=== PATIENT | female | born 1950 | race Caucasian/White ===

== ENCOUNTER 2019-10-27 06:31 | Observation (INO) ==
[~2019-10-27 06:31] MED LIST: Famotidine IV 10 MG/ML 2 ml VIAL (20 mg) IV ONE; Lactated Ringers 1000 ml BAG 1,000 ML IV SCH
[2019-10-27] MEDS ORDERED: Famotidine IV 10 MG/ML 2 ml VIAL (20 mg) ONE (07:06)
[2019-10-27] MEDS ORDERED: ceFAZolin 2 GM PREMIX in ORs 2 GM/50 ML BAG ONE (07:06)
[2019-10-27] MEDS ORDERED: ROPIVACAINE 5 MG/ML 30 ML BTL (0.5%) ONE ×2 (07:12→08:01)
[2019-10-27] MEDS ORDERED: fentaNYL 100 mcg/2 ml 50 MCG/ML VIAL ONE (08:17)
[2019-10-27] MEDS ORDERED: Midazolam 5 mg/5 ml VIAL 1 mg/ml 5 ml VIAL (5 mg) ONE (08:17)
[2019-10-27] MEDS ORDERED: Midazolam 2 mg/2 ml VIAL 1 mg/ml 2 ml VIAL (2 mg) ONE (09:15)
[2019-10-27] MEDS ORDERED: Dexmedetomidine 200 mcg/2 ml 2 ml VIAL (200 mcg) ONE (09:20)
[2019-10-27] MEDS ORDERED: Dexamethasone IV 4 MG/ML VIAL 1 ml VIAL ONE (09:20)
[2019-10-27] MEDS ORDERED: Propofol 10 MG/ML 20 ML BTL ONE ×2 (09:20→09:45)
[2019-10-27] MEDS ORDERED: DiMENhydriNATE IV 50 mg/ml 1 ml VIAL IV PUSH PRN (10:20)
[2019-10-27] MEDS ORDERED: Ondansetron 4 mg VIAL 2 MG/ML 2 ml VIAL IV PRN ×2 (10:20→11:31)
[2019-10-27] MEDS ORDERED: fentaNYL 100 mcg/2 ml 50 MCG/ML VIAL IV PRN (10:20)
[2019-10-27] MEDS ORDERED: Naloxone 0.4 mg VIAL 0.4 mg/ml 1 ml VIAL IV PRN (10:20)
[2019-10-27] MEDS ORDERED: Acetaminophen IV 1 GM/100ML 100 ML ONE (10:48)
[2019-10-27] MEDS ORDERED: Magnesium Hydroxide LIQ 30 ML UDC PO PRN (11:31)
[2019-10-27] MEDS ORDERED: Ondansetron ODT 4 mg TAB 4 MG TAB PO PRN (11:31)
[2019-10-27] MEDS ORDERED: Morphine 2 MG/ML SYRINGE IV PRN (11:31)
[2019-10-27] MEDS ORDERED: diPHENhydraMINE IV 50 MG/ML 1 ml VIAL (BENADRYL) IV PRN (11:31)
[2019-10-27] MEDS ORDERED: diPHENhydraMINE 25 mg TAB PO PRN (11:31)
[2019-10-27] MEDS ORDERED: Lactulose 30 ml UDC PO PRN (11:31)
[2019-10-27] MEDS: Lactated Ringers 1000 ml BAG 1,000 ML IV SCH ×2 (12:32→22:20)
[2019-10-27] MEDS: ceFAZolin 1 GM ADVAN(*) 1 GM in NS 0.9% 50 ML 50 ML IVPB SCH (17:00)
[2019-10-27] MEDS: Magnesium Hydroxide LIQ 30 ML UDC PO SCH (20:33)
[2019-10-27] MEDS: oxyCODONE/Acetamin 5/325 mg TAB PO PRN (22:17)
[2019-10-28] MEDS: ceFAZolin 1 GM ADVAN(*) 1 GM in NS 0.9% 50 ML 50 ML IVPB SCH ×2 (00:16→09:07)
[2019-10-28] MEDS: oxyCODONE/Acetamin 5/325 mg TAB PO PRN ×3 (05:07→14:12)
[2019-10-28 05:31] LABS: Hematocrit 35 % (35-47); Mean Platelet Volume 8.6 fL (7.4-10.4); Platelet Count 249 10^3/uL (150-450)
[2019-10-28 05:50] LABS: BUN/Creatinine Ratio 17.2 (8-20); Calcium 9.1 mg/dL (8.6-10.3); EGFR African American 66.9 (>60); EGFR Non-African American 55.3 (>60); Potassium 4.3 mmol/L (3.5-5.0)
[2019-10-28] MEDS ORDERED: Vitamin THERAPEUTIC TAB PO SCH (09:00)
[2019-10-28] MEDS ORDERED: HYDROCHLOROTHIAZIDE 12.5 MG PO SCH (09:00)
[2019-10-28] MEDS: Magnesium Hydroxide LIQ 30 ML UDC PO SCH (09:09)
[2019-10-28] MEDS ORDERED: NS 0.9% 250 ml 250 ML IV ONE (09:47)
[2019-10-28 14:46] VITALS: BP 132/86
== END 2019-10-28 14:57 | disposition home or self-care (01) ==
LOC: OR 06:31 → SSU 06:31
PROVIDERS: ADMIT Orthopaedic Surgery Adult Reconstructive Orthopaedic Surgery; ATTEND Orthopaedic Surgery Adult Reconstructive Orthopaedic Surgery

== ENCOUNTER 2020-02-24 06:19 | Observation (INO) ==
[~2020-02-24 06:19] MED LIST changes: +Buffered Lidocaine 1% SYRIN 1 ml INTRADERM ONE; +Dexamethasone IV 4 MG/ML VIAL 1 ml VIAL IV SLOW PU ONE; +Dexamethasone IV 4 MG/ML VIAL 1 ml VIAL ONE; -Famotidine IV 10 MG/ML 2 ml VIAL (20 mg) IV ONE; +ceFAZolin 2 GM PREMIX 2 GM/50 ML BAG ONE
[2020-02-24] MEDS ORDERED: ROPIVACAINE 5 MG/ML 30 ML BTL (0.5%) ONE ×2 (07:14→07:41)
[2020-02-24] MEDS ORDERED: Midazolam 2 mg/2 ml VIAL 1 mg/ml 2 ml VIAL (2 mg) ONE (07:23)
[2020-02-24] MEDS ORDERED: Rocuronium 50 mg VIAL 10 mg/ml 5 ml VIAL (50 mg) ONE (07:23)
[2020-02-24] MEDS ORDERED: fentaNYL 100 mcg/2 ml 50 MCG/ML VIAL ONE (07:23)
[2020-02-24] MEDS ORDERED: Propofol 10 MG/ML 20 ML BTL ONE (07:23)
[2020-02-24] MEDS ORDERED: Lidocaine 2% PF 5 ML VIAL ONE (07:41)
[2020-02-24] MEDS ORDERED: HYDROmorphone 1 MG/1 ML SYRINGE IV PRN (08:39)
[2020-02-24] MEDS ORDERED: fentaNYL 100 mcg/2 ml 50 MCG/ML VIAL IV PRN (08:39)
[2020-02-24] MEDS ORDERED: Naloxone 0.4 mg VIAL 0.4 mg/ml 1 ml VIAL IV PRN (08:39)
[2020-02-24] MEDS ORDERED: Ondansetron 4 mg VIAL 2 MG/ML 2 ml VIAL IV PRN ×2 (08:39→10:47)
[2020-02-24] MEDS ORDERED: Ondansetron ODT 4 mg TAB 4 MG TAB PO PRN (10:47)
[2020-02-24] MEDS ORDERED: Morphine 2 MG/ML SYRINGE IV PRN (10:47)
[2020-02-24] MEDS ORDERED: diPHENhydraMINE 25 mg TAB PO PRN (10:47)
[2020-02-24] MEDS ORDERED: oxyCODONE/Acetamin 5/325 mg TAB PO PRN ×2 (10:47)
[2020-02-24] MEDS ORDERED: Magnesium Hydroxide LIQ 30 ML UDC PO PRN (10:47)
[2020-02-24] MEDS ORDERED: diPHENhydraMINE IV 50 MG/ML 1 ml VIAL (BENADRYL) IV PRN (10:47)
[2020-02-24] MEDS ORDERED: Lactulose 30 ml UDC PO PRN (10:47)
[2020-02-24] MEDS ORDERED: oxyCODONE/Acetamin 5/325 mg TAB ONE (11:43)
[2020-02-24] MEDS: Lactated Ringers 1000 ml BAG 1,000 ML IV SCH ×2 (13:01→23:34)
[2020-02-24] MEDS: ceFAZolin 1 GM ADVAN 1 GM in NS 0.9% 50 ML 50 ML IVPB SCH ×2 (16:20→23:34)
[2020-02-24] MEDS: Magnesium Hydroxide LIQ 30 ML UDC PO SCH (21:08)
[2020-02-25 06:16] LABS: Hematocrit 34 % (35-47); Hemoglobin 11.7 g/dL (12.0-16.0); Mean Platelet Volume 8.7 fL (7.4-10.4); Platelet Count 327 10^3/uL (150-450)
[2020-02-25 06:36] LABS: BUN/Creatinine Ratio 19.5 (8-20); Calcium 8.9 mg/dL (8.6-10.3); EGFR African American 89.4 (>60); EGFR Non-African American 73.9 (>60); Potassium 3.5 mmol/L (3.5-5.0)
[2020-02-25] MEDS: ceFAZolin 1 GM ADVAN 1 GM in NS 0.9% 50 ML 50 ML IVPB SCH (08:58)
[2020-02-25] MEDS ORDERED: Vitamin THERAPEUTIC TAB PO SCH (09:00)
[2020-02-25] MEDS: Magnesium Hydroxide LIQ 30 ML UDC PO SCH (09:01)
[2020-02-25 11:04] VITALS: BP 137/74
== END 2020-02-25 14:50 | disposition home or self-care (01) ==
LOC: OR 06:19 → SSU 06:19
PROVIDERS: ADMIT Orthopaedic Surgery Adult Reconstructive Orthopaedic Surgery; ATTEND Orthopaedic Surgery Adult Reconstructive Orthopaedic Surgery